=== PATIENT | male | born 1980 | race Caucasian/White ===

== ENCOUNTER 2017-01-27 10:59 | Inpatient (IN) | payer OTHER ==
[~2017-01-27] VITALS: Ht 172.7 cm; Wt 92.4 kg
[~2017-01-27 10:59] MED LIST: CARBIDOPA/LEVOD1 TA1 PO; KLONOPIN2 M1 PO; PAXIL40 M1 PO; REMERON45 M1 PO; SEROQUEL200 MG PO; VISTARIL50 MG PO; ZOFRAN 4 MG ED2 TAB PO
[2017-01-27 11:13] VITALS: BP 104/62
[2017-01-27 11:31] LABS: BASO % 0.3 % (0.0-1.0); EOS # 0.2 10*3/uL (0.0-0.4); EOS % 2.5 % (1.0-4.0); HEMATOCRIT 46.5 % (42.0-52.0); HEMOGLOBIN 16.4 g/dl (14.0-18.0); LYMPH # 3.2 10*3/uL (1.3-4.4); MEAN CELL VOLUME 92.8 fl (80.0-94.0); MEAN CORPUSCULAR HGB 32.7 pg (27.0-31.0); MEAN CORPUSCULAR HGB CONC 35.3 g/dl (33.0-37.0); MEAN PLATELET VOLUME 8.8 fl (9.6-12.3); MONO % 14.4 % (3.0-9.0); NEUT # 2.8 10*3/uL (2.3-7.9); NEUT % 38.7 % (47.0-73.0); PLATELET COUNT AUTOMATED 242 10*3/uL (130-400); RED BLOOD COUNT 5.01 10*6/uL (4.50-5.90); RED CELL DISTRI WIDTH 12.5 % (0-14.5); WHITE BLOOD COUNT 7.2 10*3/uL (4.8-10.8)
[2017-01-27 11:41] LABS: URINE AMPHETAMINES < 1000 (1000ng/ml); URINE BARBITURATES < 200 (200ng/ml); URINE COCAINE < 300 (300ng/ml)
[2017-01-27 11:45] LABS: ALBUMIN 4.1 gm/dl (3.1-4.5); ALKALINE PHOSPHATASE 137 U/L (45-117); BILIRUBIN, TOTAL 0.4 mg/dl (0.2-1.0); BUN 14 mg/dl (7-24); CARBON DIOXIDE 31 mmol/L (21-32); CHLORIDE 100 mmol/L (98-107); EST GLOM FILT AFRICAN AMERICAN > 60 ml/min; GLUCOSE 99 mg/dL (65-99); POTASSIUM 4.4 mmol/L (3.5-5.1); SGOT/AST 58 IU/L (3-35); SGPT/ALT 98 U/L (12-78); SODIUM 139 mmol/L (136-145); TOTAL PROTEIN 8.3 gm/dL (6.4-8.2)
[2017-01-27 11:49] LABS: BILIRUBIN NEGATIVE (NEGATIVE); BLOOD NEGATIVE (NEGATIVE); CLARITY CLEAR (CLEAR); COLOR YELLOW (YELLOW); GLUCOSE NEGATIVE (NEGATIVE); KETONE NEGATIVE (NEGATIVE); LEUKO ESTERASE NEGATIVE (NEGATIVE); NITRITE NEGATIVE (NEGATIVE); PROTEIN NEGATIVE (NEGATIVE); UROBILINOGEN 0.2 E.U./dl (0.2-1.0)
[2017-01-27 11:57] VITALS: BP 106/70
[2017-01-27 11:59] LABS: URINE REFLEX COMMENT NO (NO)
[2017-01-27 12:15] VITALS: BP 106/66
[2017-01-27 12:30] VITALS: BP 106/66
[2017-01-27 12:45] LABS: INTERNATIONAL NORM RATIO 0.9 (2.0-3.5); PROTHROMBIN TIME 9.9 SECONDS (9.0-12.4)
[2017-01-27] MEDS ORDERED: PAXIL10 MG PO (14:37)
[2017-01-27 16:00] VITALS: BP 110/58
[2017-01-27 20:00] VITALS: BP 113/66
[2017-01-28] VITALS: BP 111/59
[2017-01-28 04:00] VITALS: BP 105/59
[2017-01-28 08:00] VITALS: BP 122/57
[2017-01-28 12:00] VITALS: BP 118/63
[2017-01-28 16:00] VITALS: BP 115/59
[2017-01-28 20:00] VITALS: BP 119/60
[2017-01-29] VITALS: BP 100/60
[2017-01-29 08:00] VITALS: BP 103/51
[2017-01-29 12:00] VITALS: BP 119/60
[2017-01-29 16:00] VITALS: BP 109/55
[2017-01-29 20:00] VITALS: BP 110/50
[2017-01-30] VITALS: BP 123/63
[2017-01-30 04:00] VITALS: BP 124/51
[2017-01-30 06:46] LABS: BASO % 0.3 % (0.0-1.0); EOS # 0.2 10*3/uL (0.0-0.4); EOS % 2.5 % (1.0-4.0); HEMATOCRIT 42.2 % (42.0-52.0); HEMOGLOBIN 14.9 g/dl (14.0-18.0); LYMPH # 2.9 10*3/uL (1.3-4.4); LYMPH % 45.1 % (27.0-41.0); MEAN CELL VOLUME 92.5 fl (80.0-94.0); MEAN CORPUSCULAR HGB 32.7 pg (27.0-31.0); MEAN CORPUSCULAR HGB CONC 35.3 g/dl (33.0-37.0); MEAN PLATELET VOLUME 9.3 fl (9.6-12.3); MONO # 0.7 10*3/uL (0.1-1.0); NEUT # 2.6 10*3/uL (2.3-7.9); NEUT % 40.8 % (47.0-73.0); PLATELET COUNT AUTOMATED 205 10*3/uL (130-400); RED BLOOD COUNT 4.56 10*6/uL (4.50-5.90); RED CELL DISTRI WIDTH 12.2 % (0-14.5); WHITE BLOOD COUNT 6.4 10*3/uL (4.8-10.8)
[2017-01-30 07:25] LABS: BUN 16 mg/dl (7-24); CARBON DIOXIDE 29 mmol/L (21-32); CHLORIDE 105 mmol/L (98-107); EST GLOM FILT AFRICAN AMERICAN > 60 ml/min; GLUCOSE 92 mg/dL (65-99); POTASSIUM 4.7 mmol/L (3.5-5.1); SODIUM 141 mmol/L (136-145)
[2017-01-30 08:00] VITALS: BP 136/67
[2017-01-30] MEDS ORDERED: VISTARIL50 MG PO (09:50)
[2017-01-30] MEDS ORDERED: CARBIDOPA/LEVOD1 TA1 PO (09:50)
[2017-01-30] MEDS ORDERED: ZOFRAN 4 MG ED2 TAB PO (09:50)
== END 2017-01-30 11:07 | disposition home or self-care (01) | DRG 897 ==
LOC: ED 10:59 → 4E 11:42 → EDHOLD 11:42 → 4E 12:25
PROVIDERS: Hospitalist; Internal Medicine; Registered Nurse
DX: F11.23 Opioid dependence with withdrawal (principal); F32.9 Major depressive disorder, single episode, unspecified; F14.90 Cocaine use, unspecified, uncomplicated; F19.90 Other psychoactive substance use, unspecified, uncomplicated; F41.9 Anxiety disorder, unspecified; F17.200 Nicotine dependence, unspecified, uncomplicated; Z71.6 Tobacco abuse counseling; Z79.899 Other long term (current) drug therapy; Z91.030 Bee allergy status; Z72.89 Other problems related to lifestyle; Z82.3 Family history of stroke; Z80.9 Family history of malignant neoplasm, unspecified; Z82.0 Family history of epilepsy and other diseases of the nervous system